=== PATIENT | female | born 1950 | race Asian ===

== ENCOUNTER 2019-02-23 08:07 | Emergency (ER) | payer OTHER ==
[~2019-02-23] VITALS: Ht 149.9 cm; Wt 60.3 kg
[2019-02-23 08:17] VITALS: BP_SYST 131
[2019-02-23] MEDS ORDERED: NACL 0.9% 1,000 ML IV ONE (08:24)
--- NOTE | 2019-02-23 08:24 | NUR ---
Patient to ER bed 4 to gown for evaluation. Side rails up. Report given to Isaiah COWAN.
--- NOTE | 2019-02-23 08:29 | NUR ---
Patient is awake, alert, and oriented x4. Son is at bedside. Patient is complaining of cramping abdominal pain 5/10 starting after dinner last night. Patient denies nausea, vomiting, and diarrhea. Last BM was soft this morning.
[2019-02-23] MEDS ORDERED: MORPHINE 4 MG/ML INJ. SYRINGE IVP ONE (08:30)
[2019-02-23] MEDS ORDERED: ONDANSETRON HCL 4 MG/2 ML VIAL IVP ONE (08:30)
[2019-02-23] MEDS ORDERED: FAMOTIDINE PF 20 MG/2 ML VIAL IVP ONE (08:30)
--- NOTE | 2019-02-23 08:35 | NUR ---
ER Dr. Ynes Cohn at bedside examining patient.
[2019-02-23 09:13] LABS: BASOPHILS % (AUTO) 0.1 % (0.0-2.0); EOSINOPHILS # (AUTO) 0.1 K/uL (0.0-0.4); EOSINOPHILS % (AUTO) 1.2 % (0.0-4.0); HEMATOCRIT 43.4 % (36-48); HEMOGLOBIN 14.9 g/dL (12.0-16.0); LYMPHOCYTES # (AUTO) 1.3 K/uL (1.0-5.5); LYMPHOCYTES % (AUTO) 16.8 % (20.5-51.5); MEAN CORPUSCULAR HEMOGLOBIN 33 pg (27-31); MEAN CORPUSCULAR HGB CONC 34 % (32-36); MEAN CORPUSCULAR VOLUME 97 fL (79.0-98.0); MONOCYTES # (AUTO) 0.2 K/uL (0.0-1.0); NEUTROPHILS % (AUTO) 78.9 % (40.0-70.0); PLATELET COUNT (AUTO) 213 K/uL (130-430); RED BLOOD CELL COUNT(AUTO) 4.47 MIL/uL (4.2-6.2); WHITE BLOOD COUNT (AUTO) 7.7 K/uL (4.8-10.8)
[2019-02-23] MEDS ORDERED: FAMOTIDINE 20 MG TABLET PO ONE (09:15)
[2019-02-23 09:25] LABS: ANION GAP 7 (5-15); CALCIUM 9.3 mg/dL (8.4-11.0); CHLORIDE 105 mmol/L (98-107); CREATININE 0.81 mg/dL (0.55-1.30); GLUCOSE 140 mg/dL (70-99); POTASSIUM 3.5 mmol/L (3.5-5.1); SODIUM SERUM 142 mmol/L (136-145); UREA NITROGEN, BLOOD 17 mg/dL (8-21)
[2019-02-23 09:28] LABS: GFR AFRICAN AMERICAN 91 mL/min (>90)
[2019-02-23 09:33] LABS: ALANINE AMINOTRANSFERASE 43 U/L (12-78); ALBUMIN 3.5 g/dL (3.4-4.8); ASPARTATE AMINOTRANSFERASE 34 U/L (10-37); LIPASE 148 U/L (73-393); TOTAL BILIRUBIN 0.7 mg/dL (0.0-1.0)
--- NOTE | 2019-02-23 11:08 | NUR ---
Patient given written and verbal discharge instructions and verbalizes understanding. ER MD discussed with patient the results and treatment provided. Patient in stable condition. ID arm band removed. Rx of Tylenol, Omeprazole given. Patient educated on pain management and to follow up with PMD. Pain Scale 0/10. Opportunity for questions provided and answered. Medication side effect fact sheet provided.
[2019-02-23 11:10] VITALS: BP_SYST 136
[2019-02-23 11:20] LABS: BILIRUBIN,URINE NEGATIVE (NEGATIVE); BLOOD, URINE NEGATIVE (NEGATIVE); CLARITY/URINE CLEAR (CLEAR); COLOR,URINE YELLOW (YELLOW); GLUCOSE,URINE NEGATIVE (NEGATIVE); KETONES,URINE NEGATIVE (NEGATIVE); LEUKOCYTE ESTERASE ,URINE NEGATIVE (NEGATIVE); NITRITE, URINE NEGATIVE (NEGATIVE); PH,URINE 6.5 (5.0-8.0); PROTEIN URINE NEGATIVE (NEGATIVE); UROBILINOGEN,URINE 0.2 (0.2-1.0)
== END 2019-02-23 11:10 | disposition home or self-care (01) ==
LOC: SED 08:07
DX: K29.70 Gastritis, unspecified, without bleeding (principal)
CPT/HCPCS: 36415; 80053; 81003; 83690; 84484; 85025; 96361; 96374; 96375; 99283; J2270; J2405; J7030

== ENCOUNTER 2023-09-26 19:24 | Emergency (ER) | payer OTHER, MEDICAID ==
[~2023-09-26] VITALS: Ht 154.9 cm; Wt 61.2 kg
[2023-09-26 19:57] VITALS: BP_SYST 164; PULSE 65; RESP 16; TEMP 97.1; O2SAT 98
[2023-09-26 20:00] LABS: BASOPHILS % (AUTO) 0.4 % (0.0-2.0); EOSINOPHILS # (AUTO) 0.2 K/uL (0.0-0.4); EOSINOPHILS % (AUTO) 1.7 % (0.0-4.0); HEMATOCRIT 41.1 % (36-48); HEMOGLOBIN 14.3 g/dL (12.0-16.0); LYMPHOCYTES # (AUTO) 1.8 K/uL (1.0-5.5); LYMPHOCYTES % (AUTO) 20.5 % (20.5-51.5); MEAN CORPUSCULAR HEMOGLOBIN 33 pg (27-31); MEAN CORPUSCULAR HGB CONC 35 % (32-36); MEAN CORPUSCULAR VOLUME 95 fL (79.0-98.0); MONOCYTES # (AUTO) 0.4 K/uL (0.0-1.0); MONOCYTES % (AUTO) 4.8 % (1.7-9.3); NEUTROPHILS # (AUTO) 6.5 K/uL (1.8-7.7); NEUTROPHILS % (AUTO) 72.6 % (40.0-70.0); PLATELET COUNT (AUTO) 253 K/uL (130-430); RED BLOOD CELL COUNT(AUTO) 4.32 MIL/uL (4.2-6.2); RED CELL DISTRIBUTION WIDTH 12.8 % (9.0-15.0)
[2023-09-26 20:16] LABS: ANION GAP 9 (5-15); CALCIUM 9.4 mg/dL (8.4-11.0); CARBON DIOXIDE 30 mmol/L (23-29); CHLORIDE 105 mmol/L (98-107); CREATININE 0.82 mg/dL (0.55-1.30); GLUCOSE 167 mg/dL (74-106); POTASSIUM 4.3 mmol/L (3.5-5.1); SODIUM SERUM 144 mmol/L (136-145); UREA NITROGEN, BLOOD 15 mg/dL (8-21)
[2023-09-26 20:17] LABS: INR 0.9 (0.8-1.2); PROTHROMBIN TIME 9.7 SECS (9.5-12.5)
[2023-09-26 20:31] LABS: ALANINE AMINOTRANSFERASE 24 U/L (12-78); ALBUMIN 3.7 g/dL (3.4-4.8); AMYLASE 58 U/L (0-100); ASPARTATE AMINOTRANSFERASE 24 U/L (10-37); BILIRUBIN,DIRECT 0.1 mg/dL (0.0-0.3); LACTATE DEHYDROGENASE 199 U/L (81-234); LIPASE 35 U/L (16-77); TOTAL BILIRUBIN 0.4 mg/dL (0.0-1.0); TOTAL PROTEIN, SERUM 7.7 g/dL (6.4-8.3)
[2023-09-26 20:38] LABS: BILIRUBIN,URINE NEGATIVE (NEGATIVE); BLOOD, URINE NEGATIVE (NEGATIVE); CLARITY/URINE CLEAR (CLEAR); COLOR,URINE YELLOW (YELLOW); GLUCOSE,URINE NEGATIVE (NEGATIVE); KETONES,URINE NEGATIVE (NEGATIVE); LEUKOCYTE ESTERASE ,URINE NEGATIVE (NEGATIVE); NITRITE, URINE NEGATIVE (NEGATIVE); PROTEIN URINE NEGATIVE (NEGATIVE); UROBILINOGEN,URINE 0.2 (0.2-1.0)
[2023-09-26] MEDS ORDERED: ONDA-8 TL (20:55)
[2023-09-26] MEDS ORDERED: IBUP-1969 PO (20:55)
[2023-09-26 21:04] VITALS: BP_SYST 160; PULSE 64; RESP 16; TEMP 97.3; O2SAT 98
== END 2023-09-26 21:03 | disposition home or self-care (01) ==
LOC: SED 19:24
DX: I88.0 Nonspecific mesenteric lymphadenitis (principal); E78.5 Hyperlipidemia, unspecified
CPT/HCPCS: 36415; 76376; 80048; 80076; 81001; 81003; 82150; 83605; 83615; 83690; 84484; 85025; 85610; 85730; 99284